=== PATIENT | male | born 2000 | race Caucasian/White ===

== ENCOUNTER 2022-04-06 15:34 | Emergency (ER) | payer OTHER ==
[~2022-04-06] VITALS: Ht 177.8 cm; Wt 81.6 kg
[2022-04-06] MEDS ORDERED: IBUP-1022 PO (16:29)
[2022-04-06 16:41] VITALS: BP 139/66
== END 2022-04-06 16:58 | disposition home or self-care (01) ==
LOC: M ED 15:34
DX: S86.891A Other injury of other muscle(s) and tendon(s) at lower leg level, right leg, initial encounter (principal); S86.892A Other injury of other muscle(s) and tendon(s) at lower leg level, left leg, initial encounter; Y92.9 Unspecified place or not applicable; Y93.9 Activity, unspecified; Y99.1 Military activity

== ENCOUNTER 2024-12-12 00:32 | Emergency (ER) | payer OTHER ==
[~2024-12-12] VITALS: Ht 177.8 cm; Wt 83.9 kg
[~2024-12-12 00:32] MED LIST: IBUP-1022 PO
[2024-12-12 00:35] VITALS: TEMP 99.8
[2024-12-12 03:00] VITALS: BP 125/70
[2024-12-12 03:32] VITALS: O2SAT 97
[2024-12-12] MEDS ORDERED: AMOX500C PO (03:32)
[2024-12-12] MEDS: AMOXICILLIN 500 MG CAP PO ONE (03:49)
== END 2024-12-12 04:06 | disposition home or self-care (01) ==
LOC: M ED 00:32
DX: J02.0 Streptococcal pharyngitis (principal); Z79.2 Long term (current) use of antibiotics; Z79.1 Long term (current) use of non-steroidal anti-inflammatories (NSAID)